=== PATIENT | female | born 1990 | race Caucasian/White ===

== ENCOUNTER 2023-01-11 09:15 | Observation (INO) | payer MEDICAID ==
[~2023-01-11] VITALS: Ht 162.6 cm; Wt 52.6 kg
[2023-01-11] MEDS ORDERED: PNV91TAB8 PO (10:02)
[2023-01-11 10:38] VITALS: BP 99/58
[2023-01-11] MEDS ORDERED: BETAMETH ACET/BETAMETH NA PH 30 MG/5 ML VIAL IM SCH (13:00)
[2023-01-11] MEDS ORDERED: NIFEdipine 10 MG CAPLF PO SCH (13:10)
[2023-01-11] MEDS: TERBUTALINE 1 MG/ML VIAL SUBQ SCH ×2 (14:19→14:52)
[2023-01-11 14:38] LABS: BARBITURATE, URINE NEGATIVE ng/ml (NEG <=200); BENZODIAZEPINE, URINE NEGATIVE ng/mL (NEG <=200); CANNABINOID, URINE NEGATIVE ng/mL (NEG <=50); COCAINE, URINE NEGATIVE ng/mL (NEG <=300); OPIATE, URINE NEGATIVE ng/mL (NEG <=2000); PHENCYCLIDINE SCREEN,URINE NEGATIVE ng/mL (NEG <=25)
--- NOTE | 2023-01-11 16:58 | NUR ---
PATIENT HAS BEEN SCREENED AND CATEGORIZED LOW NUTRITION RISK. PATIENT WILL BE SEEN WITHIN 7 DAYS OF ADMISSION. 01/18/23 REVIEWED BY JOSE ANTONIO [address]
[2023-01-11] MEDS: NIFEdipine 10 MG CAPLF PO SCH (20:03)
[2023-01-11] MEDS ORDERED: LACTATED RINGERS 500 ML IV SCH (23:25)
[2023-01-12] MEDS: NIFEdipine 10 MG CAPLF PO SCH ×4 (02:08→20:17)
[2023-01-12] MEDS: ACETAMINOPHEN 325 MG TAB PO PRN ×2 (02:10→15:24)
[2023-01-12] MEDS: LACTATED RINGERS 1,000 ML IV SCH ×2 (04:06→12:00)
[2023-01-12] MEDS ORDERED: BETAMETH ACET/BETAMETH NA PH 30 MG/5 ML VIAL IM SCH (14:20)
== END 2023-01-12 21:04 | disposition home or self-care (01) ==
LOC: MLD 09:15 → MFCC 20:41
PROVIDERS: ADMIT Obstetrics & Gynecology; ATTEND Obstetrics & Gynecology
DX: O60.03 Preterm labor without delivery, third trimester (principal); Z20.822 Contact with and (suspected) exposure to COVID-19; Z3A.34 34 weeks gestation of pregnancy
CPT/HCPCS: 36415; 76805; 76817; 80305; 81000; 82731; 86592; 86703; 86762; 86886; 86900; 86901; 87340; 87426; 87653; 96360; 96361; 96372; G0378; J0702; J3105; Q0092